=== PATIENT | male | born 1985 | race Caucasian/White ===

== ENCOUNTER 2016-11-04 10:11 | Emergency (ER) | payer MEDICAID ==
[~2016-11-04] VITALS: Ht 172.7 cm; Wt 77.0 kg
[~2016-11-04 10:11] MED LIST: CIPR500T4 PO; DOCU-144 PO; HYDR-906 PO; METR500T14 PO
[2016-11-04 10:27] VITALS: Ht 172.7 cm; Wt 77.0 kg
[2016-11-04] MEDS ORDERED: ACYCLOVIR 400 MG TAB PO ONE (11:30)
[2016-11-04] MEDS ORDERED: IBUPROFEN 600 MG TAB PO ONE (11:30)
--- NOTE | 2016-11-04 12:27 | ERD ---
ER Documentation Chief Complaint Date/Time DATE: 11/04/16 TIME: 12:15 Chief Complaint PAIN ON RT BUTTOCK. ABSCESS TREATED 1-MONTH AGO. HPI Pleasant 31-year-old male patient presents to emergency department today with perianal pain.. Patient reports symptoms started a few days ago. Patient reports pain with sitting and standing. Patient reports history of perianal abscess treated July 02, 2016 by incision and drainage by surgeon. Patient reports symptoms are similar. Operative chart review confirms recurrent perianal abscess and has hypertrophic scar from prior perianal I&D at approximately 4 to 5:00 in prone position. Patient denies sexual activity, Patient denies anal intercourse Patient denies fever, chills, constipation, or diarrhea. ROS All systems reviewed and are negative except as per history of present illness. Medications Home Meds Active Scripts Valacyclovir HCl (Valtrex) 1,000 Mg Tablet, 1000 MG PO TID for 7 Days, TAB Prov:MILLI,CALEB 11/04/16 Clindamycin Hcl* (Clindamycin Hcl*) 300 Mg Capsule, 300 MG PO TID for 10 Days, CAP Prov:MILLI,CALEB 11/04/16 Docusate Sodium* (Colace*) 100 Mg Capsule, 100 MG PO BID for 10 Days, #60 CAP Prov:JOIE CHEN NP 07/04/16 Metronidazole* (Metronidazole*) 500 Mg Tablet, 500 MG PO Q8 for 10 Days, TAB Prov:JOIE CHEN NP 07/04/16 Ciprofloxacin Hcl* (Ciprofloxacin Hcl*) 500 Mg Tablet, 500 MG PO BID for 10 Days , #14 TAB Prov:JOIE CHEN NP 07/04/16 Hydrocodone/Acetaminophen ([place] 5-325 Tablet) 1 Each Tablet, 1 EACH PO Q6H, # 30 TAB Prov:JOIE CHEN NP 07/04/16 Allergies Allergies: Coded Allergies: No Known Drug Allergies (Verified Allergy, Unknown, 07/02/16) PMhx/Soc Medical and Surgical Hx: pt denies Surgical Hx History of Surgery: Yes (ANAL ABSCESS) Anesthesia Reaction: No Hx Neurological Disorder: No Hx Respiratory Disorders: No Hx Cardiac Disorders: No Hx Psychiatric Problems: No Hx Alcohol Use: Yes (OOC) Hx Substance Use: No Hx Tobacco Use: No Smoking Status: Never smoker Physical Exam Vitals Vital Signs Date Time Temp Pulse Resp B/P Pulse Ox O2 Delivery O2 Flow Rate FiO2 11/04/16 13:14 98.8 75 20 125/78 98 Room Air 11/04/16 10:27 98.4 64 16 114/69 96 Vitals stable, nursing notes reviewed Physical Exam Const: [ No acute distress Head: Eyes: ENT: Neck: Resp: Cardio: Abd: Abdomen soft, symmetric, nontender in all 4 quadrants negative CVA tenderness Rectal: Normal tone, No mass, hypertrophic scar noted at 5:00 in prone position Skin: Multiple small ulcerative lesion in hypertrophic scar, 5:00, 2100, and 1800. Pulses are shallow, tender, no fistula or hemorrhoids noted. Back: No midline or flank tenderness Ext: No cyanosis, or edema Neur: Awake and alert Psych: Normal Mood and Affect Results 24 hrs Current Medications Medications (Trade) Dose Ordered Sig/Nidhi Route PRN Reason Start Time Stop Time Status Last Admin Dose Admin Acyclovir (Zovirax) 400 mg ONCE ONCE PO 11/04/16 11:30 11/04/16 11:31 DC 11/04/16 11:56 Ibuprofen (Motrin) 600 mg ONCE ONCE PO 11/04/16 11:30 11/04/16 11:31 DC 11/04/16 11:56 Procedures/MDM Pleasant 31-year-old male patient presents to emergency department today with chronic perianal abscess, and pain. Chart review confirms history of I&D by surgeon in June 2017, physical exam findings see hypertrophic scars from surgical intervention along with shallow ulcers, findings suggestive of HSV infection. Patient denies any no sex or any sexual activity. I feel the patient is stable for discharge at this time. Vitals are stable. In with current history I feel patient will benefit from both antiviral and a course of antibiotics. I have discussed results, examination findings, the treatment plan with the patient prior to discharge. Indications for emergent reevaluation worsening of symptoms, worsening of pain. fever, side effects of medication were also discussed. All questions were answered. Patient verbalizes understanding and agrees with plan of care. Departure Diagnosis: Primary Impression: HSV infection Additional Impression: Perianal abscess Condition: Good MILLI,MELODY Nov 04, 2016 12:26
[2016-11-04] MEDS ORDERED: CLIN-73 PO (12:28)
[2016-11-04] MEDS ORDERED: VALA10004 PO (12:29)
[2016-11-04 13:14] VITALS: BP 125/78; PULSE 75; RESP 20; TEMP 98.8
== END 2016-11-04 13:16 | disposition home or self-care (01) ==
LOC: FTE 10:11
DX: B00.9 Herpesviral infection, unspecified (principal); K61.0 Anal abscess
CPT/HCPCS: Z7502; Z7610; 99284

== ENCOUNTER 2016-11-11 10:21 | Emergency (ER) | payer SELFPAY ==
[~2016-11-11] VITALS: Ht 160 cm; Wt 78.0 kg
[~2016-11-11 10:21] MED LIST changes: +CLIN-73 PO; +VALA10004 PO
[2016-11-11 10:27] VITALS: Ht 160 cm; Wt 78.0 kg
== END 2016-11-11 12:18 | disposition left against medical advice (07) ==
LOC: FTE 10:21
DX: Z53.21 Procedure and treatment not carried out due to patient leaving prior to being seen by health care provider (principal)

== ENCOUNTER 2016-11-28 09:08 | Emergency (ER) | payer MEDICAID ==
[~2016-11-28] VITALS: Wt 71.2 kg
[2016-11-28] MEDS ORDERED: DOCU-144 PO (10:54)
[2016-11-28] MEDS ORDERED: CEPH500C PO (10:54)
[2016-11-28] MEDS ORDERED: BACTDS PO (10:54)
--- NOTE | 2016-11-28 10:58 | ERD ---
ER Documentation Chief Complaint Date/Time DATE: 11/28/16 TIME: 10:56 Chief Complaint abscess near rectum for the past month. no fevers. mild drainage HPI This 31-year-old male complains purulent discharge and slight blood from his rectum intermittently for last month. Patient has a history of an abscess incised and drained approximately 4 months ago. Denies any fevers, vomiting. He is having normal bowel movements. ROS All systems reviewed and are negative except as per history of present illness. Medications Home Meds Active Scripts Docusate Sodium* (Colace*) 100 Mg Capsule, 100 MG PO BID, #60 CAP Prov:JOSUE PRADO MD 11/28/16 Cephalexin* (Cephalexin*) 500 Mg Capsule, 500 MG PO Q6 for 10 Days, #40 CAP Prov:JOSUE PRADO MD 11/28/16 Sulfamethoxazole-Trimethoprim* (Bactrim* DS) 800-160 Mg Tab, 1 TAB PO BID for 10 Days, TAB Prov:JOSUE PRADO MD 11/28/16 Valacyclovir HCl (Valtrex) 1,000 Mg Tablet, 1000 MG PO TID for 7 Days, TAB Prov:MILLI,CALEB 11/04/16 Clindamycin Hcl* (Clindamycin Hcl*) 300 Mg Capsule, 300 MG PO TID for 10 Days, CAP Prov:MILLI,CALEB 11/04/16 Docusate Sodium* (Colace*) 100 Mg Capsule, 100 MG PO BID for 10 Days, #60 CAP Prov:JOIE CHEN NP 07/04/16 Metronidazole* (Metronidazole*) 500 Mg Tablet, 500 MG PO Q8 for 10 Days, TAB Prov:JOIE CHEN NP 07/04/16 Ciprofloxacin Hcl* (Ciprofloxacin Hcl*) 500 Mg Tablet, 500 MG PO BID for 10 Days , #14 TAB Prov:JOIE CHEN NP 07/04/16 Hydrocodone/Acetaminophen ([place] 5-325 Tablet) 1 Each Tablet, 1 EACH PO Q6H, # 30 TAB Prov:JOIE CHEN NP 07/04/16 Allergies Allergies: Coded Allergies: No Known Drug Allergies (Verified Allergy, Unknown, 07/02/16) PMhx/Soc History of Surgery: Yes (ANAL ABSCESS) Anesthesia Reaction: No Hx Neurological Disorder: No Hx Respiratory Disorders: No Hx Cardiac Disorders: No Hx Psychiatric Problems: No Hx Alcohol Use: Yes (OOC) Hx Substance Use: No Hx Tobacco Use: No Smoking Status: Never smoker Physical Exam Vitals Vital Signs Date Time Temp Pulse Resp B/P Pulse Ox O2 Delivery O2 Flow Rate FiO2 11/28/16 09:16 98.3 71 21 112/65 98 Physical Exam Const: [] Alert, [id number] Head: Atraumatic Eyes: Normal Conjunctiva ENT: Normal External Ears, Nose and Mouth. Neck: Full range of motion..~ No meningismus. Resp: Clear to auscultation bilaterally Cardio: Regular rate and rhythm, no murmurs Abd: Soft, non tender, non distended. Normal bowel sounds. Rectal exam shows approximately a 2 cm area of scar tissue and firmness without erythema or appreciable fluctuance. There is a small opening of like an abscess which is chronically draining or a fistula tract. There is no evidence of recurrent significant abscess to be drained today. 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 Skin: No petechiae or rashes Back: No midline or flank tenderness Ext: No cyanosis, or edema Neur: Awake and alert Psych: Normal Mood and Affect Procedures/MDM Patient presents with rectal lesion intimately for last month draining purulent liquid. Signs and symptoms of a small residual sinus tract or possibly fistula in anal. There is no evidence of active or significant abscess to be drained today. Patient was treated Bactrim and Keflex and Colace and instructed to follow-up with primary doctor in further evaluation by surgeon for further evaluation treatment. Patient was advised to return for fevers, vomiting, worsening symptoms with primary doctor and surgeon as directed. The patient was stable with no new complaints during the ER course. Clinically, there is no current evidence to suggest meningitis, sepsis, acute abdomen, pneumonia, acute coronary syndrome, pulmonary embolism, or any other emergent condition appearing to require further evaluation or hospitalization. The patient should certainly return for any new or worsening symptoms per the aftercare instructions. They should otherwise follow-up with her primary care doctor for reevaluation this week. Departure Diagnosis: Primary Impression: Perianal abscess Condition: Stable Patient Instructions: Darshana-Anal Abscess, Abx Only Referrals: LENI EL MD, KAMBIZ M.D. LOMIS, THOMAS MD Additional Instructions: CHEQUE CON DOCTOR PRIMARIO/ CIRUJANO PARA SIMPTOMAS QUE CONTINUAR . REGRESA PARA FIEBRE, MAS SIMPTOMAS JOSUE PRADO MD Nov 28, 2016 10:58
== END 2016-11-28 11:05 | disposition home or self-care (01) ==
LOC: FTE 09:08
DX: K61.0 Anal abscess (principal)
CPT/HCPCS: 99284

== ENCOUNTER 2017-06-11 12:23 | Emergency (ER) | payer MEDICAID ==
[~2017-06-11] VITALS: Ht 160 cm; Wt 73.0 kg
[~2017-06-11 12:23] MED LIST changes: +BACTDS PO; +CEPH500C PO
[2017-06-11 12:26] VITALS: Ht 160 cm; Wt 73.0 kg
[2017-06-11] MEDS ORDERED: HYDROCODONE/APAP (5/325) TAB PO ONE (13:30)
[2017-06-11] MEDS ORDERED: NAPR-260 PO (14:00)
--- NOTE | 2017-06-11 14:07 | ERD ---
ER Documentation Chief Complaint Date/Time DATE: 06/11/17 TIME: 14:04 Chief Complaint Complains of right wrist pain HPI This is [id number] male who presents the emergency department today complaining of right wrist pain for the past couple of days. States he works as a cook. States he tried Tylenol. Denies any trauma, fevers or chills. ROS All systems reviewed and are negative except as per history of present illness. Medications Home Meds Active Scripts Naproxen* (Naprosyn*) 500 Mg Tablet, 500 MG PO BID Y for PAIN AND/OR INFLAMMATION, #30 TAB Prov:JUANPABLO SAUCEDA PA-C 06/11/17 Docusate Sodium* (Colace*) 100 Mg Capsule, 100 MG PO BID, #60 CAP Prov:JOSUE PRADO MD 11/28/16 Cephalexin* (Cephalexin*) 500 Mg Capsule, 500 MG PO Q6 for 10 Days, #40 CAP Prov:JOSUE PRADO MD 11/28/16 Sulfamethoxazole-Trimethoprim* (Bactrim* DS) 800-160 Mg Tab, 1 TAB PO BID for 10 Days, TAB Prov:JOSUE PRADO MD 11/28/16 Valacyclovir HCl (Valtrex) 1,000 Mg Tablet, 1000 MG PO TID for 7 Days, TAB Prov:MILLI,CALEB 11/04/16 Clindamycin Hcl* (Clindamycin Hcl*) 300 Mg Capsule, 300 MG PO TID for 10 Days, CAP Prov:MILLI,CALEB 11/04/16 Docusate Sodium* (Colace*) 100 Mg Capsule, 100 MG PO BID for 10 Days, #60 CAP Prov:JOIE CHEN NP 07/04/16 Metronidazole* (Metronidazole*) 500 Mg Tablet, 500 MG PO Q8 for 10 Days, TAB Prov:JOIE CHEN NP 07/04/16 Ciprofloxacin Hcl* (Ciprofloxacin Hcl*) 500 Mg Tablet, 500 MG PO BID for 10 Days , #14 TAB Prov:JOIE CHEN NP 07/04/16 Hydrocodone/Acetaminophen ([place] 5-325 Tablet) 1 Each Tablet, 1 EACH PO Q6H, # 30 TAB Prov:JOIE CHEN NP 07/04/16 Allergies Allergies: Coded Allergies: No Known Drug Allergies (Verified Allergy, Unknown, 06/11/17) PMhx/Soc History of Surgery: Yes (ANAL ABSCESS) Anesthesia Reaction: No Hx Neurological Disorder: No Hx Respiratory Disorders: No Hx Cardiac Disorders: No Hx Psychiatric Problems: No Hx Alcohol Use: Yes (OOC) Hx Substance Use: No Hx Tobacco Use: No Smoking Status: Never smoker Physical Exam Vitals Vital Signs Date Time Temp Pulse Resp B/P Pulse Ox O2 Delivery O2 Flow Rate FiO2 06/11/17 12:26 98.0 92 20 116/70 96 Physical Exam Const: NAD Head: Atraumatic Eyes: Normal Conjunctiva ENT: Normal External Ears, Nose and Mouth. Neck: Full range of motion..~ No meningismus. Resp: Clear to auscultation bilaterally Cardio: Regular rate and rhythm, no murmurs Skin: No petechiae or rashes MSk: Right wrist with no obvious deformity. Mild effusion over distal part of radius on the dorsal aspect. Full active range of motion which crepitus. Pulses 2+. Distal neurovascularly intact. Neur: Awake and alert Psych: Normal Mood and Affect Results 24 hrs Current Medications Medications (Trade) Dose Ordered Sig/Nidhi Route PRN Reason Start Time Stop Time Status Last Admin Dose Admin Acetaminophen/ Hydrocodone Bitart ([place] (5/325)) 1 tab ONCE ONCE PO 06/11/17 13:30 06/11/17 13:31 DC 06/11/17 13:24 Procedures/MDM This is a 31-year-old male presents emergency department today complaining of right wrist pain for the past couple of days. On physical exam patient has some localized swelling over the dorsal aspect of his radius. He does have some localized crepitus with flexion and extension. Symptoms at this time is consistent with nidus versus tenosynovitis. He is afebrile and otherwise well- appearing. There is no erythema or warmth. Low suspicion for sepsis, cellulitis, deep space infection, gas gangrene. There is been no trauma. Low suspicion for acute fracture dislocation. Patient was given [place] and a velcro wrist brace here in the emergency department he was given a prescription for Naprosyn for home. At this time the patient is stable for discharge and outpatient management. Patient should follow up with their PCP in the next 1-2 days. They may return to the emergency department sooner for any persistent or worsening of symptoms. Patient understood and agreed with the plan. Departure Diagnosis: Primary Impression: Pain in wrist Laterality: right Qualified Code: M25.531 - Right wrist pain Condition: Fair Patient Instructions: Tendonitis, De [place] Tenosynovitis [facility] Usted se lyman hecho un examen mdico de control que le indica que no est en karmen condicin que requiera tratamiento urgente en el Departamento de Emergencia. Un estudio ms profundo y el tratamiento de dozier condicin pueden esperar sin ningn riesgo hasta que usted sea atendida/o en el consultorio de dozier mdico o karmen cl deepa. Es responsabilidad suya arreglar karmen dyan para el seguimiento del carmina. MANEJO DE CONDICIONES NO URGENTES EN EL FUTURO 1) Si usted tiene un mdico de atencin primaria: Usted debera llamar a dozier mdico de atencin primaria antes de venir al departamento de emergencia. Despus de las horas de consultorio, dozeir doctor o dozier asociado/a est disponible por telfono. El mdico o enfermero de lucrecia en el servicio telefnico puede asesorarle por barbara medio para atender el problema, o carmina contrario se puede programar karmen dyan. 2) Si usted no tiene un mdico de atencin primaria: Llame al mdico o clnica de referencia que aparece abajo bharti las horas de consultorio para hacer karmen dyan para que le vean. CLINICAS: [facility] [phone] [facility] [phone] [facility] [phone] [facility] [phone] [place] [phone] [facility] [phone] [address] Additional Instructions: Llame al doctor MAANA y vick karmen DYAN PARA DENTRO DE 1-2 MEDRANO.Dgale a la secretaria que nosotros le instruimos hacer esta dyan.Avise o llame si dozier condicin se empeora antes de la dyan. Regresa aqui si peor o no mejor. Take Naprosyn or Tylenol or Motrin for pain. Apply ice to painful area and rest the area. Use wrist brace for comfort Remove brace to shower and do not get brace wet JUANPABLO SAUCEDA PA-C Jun 11, 2017 14:07
== END 2017-06-11 15:40 | disposition home or self-care (01) ==
LOC: FTE 12:23
DX: M25.531 Pain in right wrist (principal)
CPT/HCPCS: 29125; Z7502; Z7610

== ENCOUNTER 2018-06-18 03:48 | Emergency (ER) | END 2018-06-18 04:28 | disposition home or self-care (01) ==